=== PATIENT | male | born 1975 | race Caucasian/White ===

== ENCOUNTER 2016-09-08 16:10 | Inpatient (IN) | payer OTHER ==
[2016-09-08 16:31] VITALS: BMI 26.7
--- NOTE | 2016-09-08 18:33 | HP ---
CIWA Score - CIWA Score Nausea/Vomitin Muscle Tremors: 4-Moderate,w/Arms Extend Anxiety: 4-Mod. Anxious/Guarded Agitation: 4-Moderately Restless Paroxysmal Sweats: 3 Orientation: 0-Oriented Tacttile Disturbances: 1-Very Mild Itch/Numbness Auditory Disturbances: 0-None Visual Disturbances: 0-None Headache: 0-None Present CIWA-Ar Total Score: 19 Admission ROS BHS - HPI Chief Complaint: WITHDRAWAL SX. Allergies/Adverse Reactions: Allergies Allergy/AdvReac Type Severity Reaction Status Date / Time shellfish derived Allergy Verified 09/08/16 18:25 History of Present Illness: 41 Y/O MAN WITH A LONG HX. OF DRUG AND ALCOHOL DEPENDENCE IS ADMITTED FOR DETOX.PT. HAS BEEN IN PREVIOUS DETOX,DENIES SIGNIFICANT SOBRIETY. Exam Limitations: No Limitations - Ebola screening Have you traveled outside of the country in the last 21 days: No Have you had contact with anyone from an Ebola affected area: No Have you been sick,other than usual withdrawal symptoms: No Do you have a fever: No - Review of Systems Constitutional: Diaphoresis EENT: reports: No Symptoms Reported Respiratory: reports: No Symptoms reported Cardiac: reports: No Symptoms Reported GI: reports: Diarrhea, Nausea, Abdominal cramping : reports: No Symptoms Reported Musculoskeletal: reports: Joint Pain Integumentary: reports: Sweating Neuro: reports: Seizure (SINCE CHILDHOOD), Tremors Endocrine: reports: No Symptoms Reported Hematology: reports: No Symptoms Reported Psychiatric: reports: No Sypmtoms Reported Other Systems: Reviewed and Negative Patient History - Patient Medical History Hx Anemia: No Hx Asthma: Yes Hx Chronic Obstructive Pulmonary Disease (COPD): No Hx Cancer: No Hx Cardiac Disorders: No Hx Congestive Heart Failure: No Hx Hypertension: No Hx Hypercholesterolemia: No Hx Pacemaker: No HX Cerebrovascular Accident: No Hx Seizures: Yes (SINCE CHILDHOOD) Hx Dementia: No Hx Diabetes: No Hx Gastrointestinal Disorders: Yes (DYSPEPSIA) Hx Liver Disease: No Hx Genitourinary Disorders: No Hx Sexually Transmitted Disorders: No Hx Renal Disease (ESRD): No Hx Thyroid Disease: No Hx Human Immunodeficiency Virus (HIV): No Hx Hepatitis C: No Hx Depression: Yes ([place]) Hx Suicide Attempt: No Hx Bipolar Disorder: No Hx Schizophrenia: No - Patient Surgical History Past Surgical History: No - PPD History Previous Implant?: Yes Documented Results: Negative w/o proof Implanted On Prior [facility] Admission?: No PPD to be Administered?: Yes - Smoking Cessation Smoking history: Current every day smoker Aproximately how many cigarettes per day: 20 Hx Chewing Tobacco Use: No Initiated information on smoking cessation: Yes 'Breaking Loose' booklet given: 09/08/16 - Substance & Tx. History Hx Alcohol Use: Yes Hx Substance Use: Yes Substance Use Type: Alcohol, Cocaine Hx Substance Use Treatment: Yes (DETOX, OTP) - Substances Abused Alcohol Route: Oral Frequency: Daily Amount used: BEER 2-4(6PACKS) OR RUM 2 PINTS Age of first use: 17 Date of Last Use: 09/08/16 Family Disease History - Family Disease History Family Disease History: Other: Father (DRUG & ALCOHOL OF CIRRHOSIS) Admission Physical Exam [facility] - Vital Signs Vital Signs: Vital Signs - 24 hr 09/08/16 16:28 Temperature 97.9 F Pulse Rate 70 Respiratory 18 Rate Blood Pressure 128/79 - Physical General Appearance: Yes: Tremorous, Irritable, Sweating, Anxious HEENTM: Yes: Within Normal Limits Respiratory: Yes: Chest Non-Tender, Lungs Clear, Normal Breath Sounds Neck: Yes: Supple Breast: Yes: Breast Exam Deferred Cardiology: Yes: Regular Rhythm, Regular Rate, S1, S2 Abdominal: Yes: Normal Bowel Sounds, Non Tender, Soft Genitourinary: Yes: Within Normal Limits Back: Yes: Within Normal Limits Musculoskeletal: Yes: Within Normal Limits Extremities: Yes: Tremors Neurological: Yes: Fully Oriented, Alert Integumentary: Yes: Diaphoresis Lymphatic: Yes: Within Normal Limits - Diagnostic (1) Alcohol dependence with uncomplicated withdrawal Current Visit: Yes Status: Acute (2) Asthma Current Visit: Yes Status: Acute Qualifiers: Asthma severity: mild intermittent Asthma complication type: with acute exacerbation Qualified Code(s): J45.21 - Mild intermittent asthma with (acute) exacerbation (3) Opioid dependence on agonist therapy Current Visit: Yes Status: Acute Cleared for Admission [facility] - Detox or Rehab [facility] Level of Care: Medically Managed Detox Regimen/Protocol: Librium [facility] Breath Alcohol Content Breath Alcohol Content: 0 Urine Drug Screen - Results Drug Screen Negative: No Urine Drug Screen Results: MICKEY-Cocaine, OPI-Opiates, MTD-Methadone
[2016-09-08] MEDS ORDERED: hydrOXYzine PAMOATE 50 MG CAPSULE (FP) PO PRN (18:45)
[2016-09-08] MEDS ORDERED: MAG HYDROX/AL HYDROX/SIMETH 30 ML UNIT-DOSE CUP PO PRN (18:45)
[2016-09-08] MEDS ORDERED: chlordiazePOXIDE HCL 25 MG CAPSULE PO PRN (18:45)
[2016-09-08] MEDS ORDERED: MAGNESIUM CITRATE 300 ML BOTTLE PO PRN (18:45)
[2016-09-08] MEDS ORDERED: chlordiazePOXIDE HCL 25 MG CAPSULE PO ONE (18:45)
[2016-09-08] MEDS ORDERED: MAGNESIUM HYDROX 2400MG/30ML ORAL SUSPENSION 30 ML CUP PO PRN (18:45)
[2016-09-08] MEDS ORDERED: ACETAMINOPHEN 325 MG TABLET (FP) PO PRN (18:45)
[2016-09-08] MEDS ORDERED: LOPERAMIDE HCL 2 MG CAPSULE PO PRN (18:45)
[2016-09-08] MEDS ORDERED: guaiFENesin/D-METHORPHAN HB 10 ML UNIT-DOSE CUPS PO PRN (18:45)
[2016-09-08] MEDS ORDERED: MENTHOL/PHENOL 1 EACH UD MM PRN (18:45)
[2016-09-08] MEDS ORDERED: P-EPHED 60MG/TRIPROLIDI 2.5MG TABLET PO PRN (18:45)
[2016-09-08] MEDS ORDERED: IBUPROFEN 400 MG TABLET (FP) PO PRN (18:45)
[2016-09-08] MEDS ORDERED: ALBUTEROL SO4 6.7 GM HFA INHALER IH PRN (18:50)
[2016-09-08] MEDS: NICOTINE 21 MG/24 HOURS TOPICAL PATCH TD SCH (20:20)
[2016-09-08] MEDS ORDERED: INFLUENZA VACCINE 45 MCG/0.5 ML (MDV 16-17) IM ONE (20:32)
[2016-09-08] MEDS: PHENYTOIN NA EXTENDED 100 MG CAPSULE (FP) PO SCH (22:55)
[2016-09-08] MEDS: chlordiazePOXIDE HCL 25 MG CAPSULE PO SCH (22:55)
[2016-09-08] MEDS: diphenhydrAMINE HCL 50 MG CAPSULE PO PRN (22:58)
[2016-09-08] MEDS: THIAMINE HCL 100 MG TABLET (FP) PO SCH (23:02)
[2016-09-08] MEDS: NICOTINE POLACRILEX 2 MG GUM BC PRN (23:38)
[2016-09-09] MEDS ORDERED: METHADONE HCL 10 MG TABLET ONE (05:58)
[2016-09-09] MEDS ORDERED: METHADONE HCL 40 MG DISPERSABLE TABLET ONE (05:58)
[2016-09-09] MEDS ORDERED: METHADONE HCL 10 MG TABLET PO SCH (06:00)
[2016-09-09] MEDS: chlordiazePOXIDE HCL 25 MG CAPSULE PO SCH ×4 (06:09→22:47)
[2016-09-09] MEDS: METHADONE 120 MG, METHADONE 10 MG PO SCH (06:10)
[2016-09-09] MEDS ORDERED: ALBUTEROL SO4 2.5/IPRATROPIUM 0.5 INH SOL 3 ML VIAL.NEB. NEB PRN (08:00)
[2016-09-09 10:28] LABS: URINE APPEARANCE CLEAR; URINE BILIRUBIN NEGATIVE (NEGATIVE); URINE BLOOD NEGATIVE (NEGATIVE); URINE COLOR LTYELLOW; URINE GLUCOSE (UA) NEGATIVE (NEGATIVE); URINE KETONE NEGATIVE (NEGATIVE); URINE LEUK ESTERASE NEGATIVE (NEGATIVE); URINE NITRITE NEGATIVE (NEGATIVE); URINE PROTEIN NEGATIVE (NEGATIVE); URINE UROBILINOGEN NEGATIVE E.U./dl (0.2-1.0)
[2016-09-09 10:35] LABS: MCH 29.8 pg (25.7-33.7); MCHC 34.3 g/dl (32.0-35.9); MEAN PLT VOLUME 8.1 fl (7.5-11.1); PLATELET COUNT 209 K/MM3 (134-434); RDW 14.2 % (11.9-15.9); WHITE BLOOD COUNT 7.5 K/mm3 (4.0-10.0)
[2016-09-09 11:08] LABS: ALBUMIN 3.6 g/dl (3.4-5.0); ALK PHOS 65 U/L (45-117); ANION GAP 5 (8-16); BILIRUBIN,TOTAL 0.4 mg/dL (0.2-1.0); CALCIUM 8.5 mg/dL (8.5-10.1); CO2 29 mmol/L (21-32); GLUCOSE,RANDOM 93 mg/dL (74-106); SGOT/AST 24 U/L (15-37); SGPT/ALT 28 U/L (12-78)
[2016-09-09] MEDS ORDERED: INFLUENZA VACCINE 45 MCG/0.5 ML (MDV 16-17) IM ONE (12:00)
--- NOTE | 2016-09-09 12:07 | PN ---
S CIWA - CIWA Score Nausea/Vomitin Muscle Tremors: 3 Anxiety: 3 Agitation: 2 Paroxysmal Sweats: 1-Minimal Palms Moist Orientation: 0-Oriented Tacttile Disturbances: 1-Very Mild Itch/Numbness Auditory Disturbances: 1-Very Mild Visual Disturbances: 1-Very Mild Sensitivity Headache: 2-Mild CIWA-Ar Total Score: 17 BHS Progress Note (SOAP) Subjective: ALERT,IRRITABLE,ANXIOUS,INTERRUPTED SLEEP,TREMOR,PAIN IN THE BODY AND BACK Objective: 09/09/16 12:04 Vital Signs Temperature 98.4 F 09/09/16 10:25 Pulse Rate 70 09/09/16 10:25 Respiratory Rate 18 09/09/16 10:25 Blood Pressure 102/63 09/09/16 10:25 O2 Sat by Pulse Oximetry (%) EKG SINUS BRADYCARDIA RATE 59 NO CHEST PAIN,NO SOB,NO DIZZINESS Laboratory Last Values WBC 7.5 K/mm3 (4.0-10.0) 09/09/16 07:15 RBC 4.40 M/mm3 (4.00-5.60) 09/09/16 07:15 Hgb 13.1 GM/dL (11.7-16.9) 09/09/16 07:15 Hct 38.3 % (35.4-49) 09/09/16 07:15 MCV 87.0 fl (80-96) 09/09/16 07:15 MCHC 34.3 g/dl (32.0-35.9) 09/09/16 07:15 RDW 14.2 % (11.9-15.9) 09/09/16 07:15 Plt Count 209 K/MM3 (134-434) 09/09/16 07:15 MPV 8.1 fl (7.5-11.1) 09/09/16 07:15 Sodium 140 mmol/L (136-145) 09/09/16 07:15 Potassium 4.3 mmol/L (3.5-5.1) 09/09/16 07:15 Chloride 106 mmol/L (98-107) 09/09/16 07:15 Carbon Dioxide 29 mmol/L (21-32) 09/09/16 07:15 Anion Gap 5 (8-16) L 09/09/16 07:15 BUN 20 mg/dL (7-18) H 09/09/16 07:15 Creatinine 1.0 mg/dL (0.7-1.3) 09/09/16 07:15 Creat Clearance w eGFR > 60 (>60) 09/09/16 07:15 Random Glucose 93 mg/dL (74-106) 09/09/16 07:15 Calcium 8.5 mg/dL (8.5-10.1) 09/09/16 07:15 Total Bilirubin 0.4 mg/dL (0.2-1.0) 09/09/16 07:15 AST 24 U/L (15-37) 09/09/16 07:15 ALT 28 U/L (12-78) 09/09/16 07:15 Alkaline Phosphatase 65 U/L (45-117) 09/09/16 07:15 Total Protein 7.0 g/dl (6.4-8.2) 09/09/16 07:15 Albumin 3.6 g/dl (3.4-5.0) 09/09/16 07:15 Urine Color Ltyellow 09/09/16 07:40 Urine Appearance Clear 09/09/16 07:40 Urine pH 7.0 (5.0-8.0) 09/09/16 07:40 Ur Specific [place] 1.015 (1.001-1.035) 09/09/16 07:40 Urine Protein Negative (NEGATIVE) 09/09/16 07:40 Urine Glucose (UA) Negative (NEGATIVE) 09/09/16 07:40 Urine Ketones Negative (NEGATIVE) 09/09/16 07:40 Urine Blood Negative (NEGATIVE) 09/09/16 07:40 Urine Nitrite Negative (NEGATIVE) 09/09/16 07:40 Urine Bilirubin Negative (NEGATIVE) 09/09/16 07:40 Urine Urobilinogen Negative E.U./dl (0.2-1.0) 09/09/16 07:40 Ur Leukocyte Esterase Negative (NEGATIVE) 09/09/16 07:40 09/09/16 12:06 Assessment: 09/09/16 12:06 WITHDRAWAL SYMPTOM 09/09/16 12:06 Plan: TO CONTINUE DETOX
[2016-09-09] MEDS: PHENYTOIN NA EXTENDED 100 MG CAPSULE (FP) PO SCH ×2 (12:14→22:47)
[2016-09-09] MEDS: NICOTINE 21 MG/24 HOURS TOPICAL PATCH TD SCH (12:15)
[2016-09-09] MEDS: PRENATAL VITAMINS W/ FOLIC ACID TABLET (FP) PO SCH (12:15)
[2016-09-09 15:28] LABS: HIV 1 & 2 AB NEGATIVE; HIV 1 AGp24 NEGATIVE
--- NOTE | 2016-09-09 21:35 | CONSULT ---
[facility] Psychiatric Consult - Data Date of interview: 09/09/16 Admission source: [facility] Identifying data: First admission to [facility] for this 41 y/o male seeking detox treatment on for alcohol,opioid and cocaine dependence.Patient is single without children,homeless,unemployed and supported on Public Assistance. Substance Abuse History: - Smoking Cessation. Smoking history: Current every day smoker. Aproximately how many cigarettes per day: 20. Hx Chewing Tobacco Use: No. Initiated information on smoking cessation: Yes. 'Breaking Loose' booklet given: 09/08/16. - Substance & Tx. History. Hx Alcohol Use: Yes. Hx Substance Use: Yes. Substance Use Type: Alcohol, Cocaine. Hx Substance Use Treatment: Yes (DETOX, OTP). - Substances Abused. Alcohol. Route: Oral. Frequency: Daily. Amount used: BEER 2-4(6PACKS) OR RUM 2 PINTS. Age of first use: 17. Date of Last Use: 09/08/16. Confirmed by patient. Medical History: Significant for a history of seizue disorder (since childhood), dyspepsia and bronchial asthma. Psychiatric History: Patient denies history of psychiatric hospitalizations.He indicates,however,that since age 18,he has been diagnosed with Bipolar Disorder and MDD that were managed with valproate and clonazepam.Trazodone was prescribed to him to address his insomnia.Mr Munoz reports chronic non adherence to OPD care but he keeps regular attendance at his methadone maintenance program (130 mg/day),[facility].Patient kept himself off psychotropic medications for several months." I was using drugs and I was going from place to place." Mr Munoz is currently expressing interest in resuming treatment with depakote (as a mood stabilizer) and trazodone for insomnia.He reports a remote history of suicide attempt (self-mutilation) years ago.Chronic insomnia remains a constant complaint. Physical/Sexual Abuse/Trauma History: No reported history of sexual abuse. Additional Comment: Urine Drug Screen Results: MICKEY-Cocaine, OPI-Opiates, MTD- Methadone.Noted. Mental Status Exam - Mental Status Exam Alert and Oriented to: Time, Place, Person Cognitive Function: Good Patient Appearance: Unkempt, Disheveled Mood: Nervous, Anxious, Apprehensive Affect: Mood Congruent, Blunted Patient Behavior: Fatigued, Appropriate, Cooperative Speech Pattern: Clear Voice Loudness: Normal Thought Process: Goal Oriented Thought Disorder: Not Present Hallucinations: Denies Suicidal Ideation: Denies Homicidal Ideation: Denies Insight/Judgement: Poor Sleep: Poorly, Difficulty falling asleep Appetite: Good Muscle strength/Tone: Normal Gait/Station: Normal Psychiatric Findings - Problem List ([place] 1, 2,3) (1) Alcohol dependence with uncomplicated withdrawal Current Visit: Yes Status: Acute (2) Opioid dependence on agonist therapy Current Visit: Yes Status: Acute (3) Cocaine dependence Current Visit: Yes Status: Acute (4) Nicotine dependence Current Visit: Yes Status: Acute (5) Substance induced mood disorder Current Visit: Yes Status: Acute (6) Bipolar disorder Current Visit: Yes Status: Chronic Comment: By history. (7) Asthma Current Visit: Yes Status: Chronic Qualifiers: Asthma severity: mild intermittent Asthma complication type: with acute exacerbation Qualified Code(s): J45.21 - Mild intermittent asthma with (acute) exacerbation - Initial Treatment Plan Initial Treatment Plan: Psychoeducation.Detoxification.Observation.Medications : depakote 250 mg po daily.Side effects/benefits discussed with patient.Trazodone not ordered (no evidence of sleep disturbances as per nursing notes).Consent ( verbal) given for adherence to this careplan.Observation.
[2016-09-09] MEDS: THIAMINE HCL 100 MG TABLET (FP) PO SCH (22:47)
[2016-09-09] MEDS: diphenhydrAMINE HCL 50 MG CAPSULE PO PRN (22:48)
[2016-09-09] MEDS: NICOTINE POLACRILEX 2 MG GUM BC PRN (22:50)
[2016-09-10] MEDS ORDERED: METHADONE HCL 10 MG TABLET ONE (07:14)
[2016-09-10] MEDS ORDERED: METHADONE HCL 40 MG DISPERSABLE TABLET ONE (07:14)
[2016-09-10] MEDS: METHADONE 120 MG, METHADONE 10 MG PO SCH (07:33)
[2016-09-10] MEDS: chlordiazePOXIDE HCL 25 MG CAPSULE PO SCH ×3 (07:35→17:58)
[2016-09-10] MEDS ORDERED: DIVALPROEX SODIUM 250 MG TABLET E.C. (FP) PO SCH (10:00)
[2016-09-10] MEDS: PRENATAL VITAMINS W/ FOLIC ACID TABLET (FP) PO SCH (10:36)
[2016-09-10] MEDS: PHENYTOIN NA EXTENDED 100 MG CAPSULE (FP) PO SCH (10:36)
[2016-09-10] MEDS: NICOTINE 21 MG/24 HOURS TOPICAL PATCH TD SCH (10:37)
[2016-09-10] MEDS: NICOTINE POLACRILEX 2 MG GUM BC PRN (10:39)
--- NOTE | 2016-09-10 11:08 | PN ---
S CIWA - CIWA Score Nausea/Vomitin-No Nausea/No Vomiting Muscle Tremors: 4-Moderate,w/Arms Extend Anxiety: 3 Agitation: 4-Moderately Restless Paroxysmal Sweats: 3 Orientation: 0-Oriented Tacttile Disturbances: 0-None Auditory Disturbances: 0-None Visual Disturbances: 0-None Headache: 1-Very Mild CIWA-Ar Total Score: 15 BHS Progress Note (SOAP) Subjective: hot/cold sweats constipation agitation anxiety Objective: 09/10/16 11:03 Vital Signs Temperature 98.2 F 09/10/16 10:39 Pulse Rate 82 09/10/16 10:39 Respiratory Rate 16 09/10/16 10:39 Blood Pressure 139/74 09/10/16 10:39 O2 Sat by Pulse Oximetry (%) Laboratory Tests 09/09/16 09/09/16 09/09/16 07:15 07:15 07:15 WBC 7.5 RBC 4.40 Hgb 13.1 Hct 38.3 MCV 87.0 MCHC 34.3 RDW 14.2 Plt Count 209 MPV 8.1 Sodium 140 Potassium 4.3 Chloride 106 Carbon Dioxide 29 Anion Gap 5 L BUN 20 H Creatinine 1.0 Creat Clearance w eGFR > 60 Random Glucose 93 Calcium 8.5 Total Bilirubin 0.4 AST 24 ALT 28 Alkaline Phosphatase 65 Total Protein 7.0 Albumin 3.6 Urine Color Urine Appearance Urine pH Ur Specific [place] Urine Protein Urine Glucose (UA) Urine Ketones Urine Blood Urine Nitrite Urine Bilirubin Urine Urobilinogen Ur Leukocyte Esterase Phenytoin RPR Titer Nonreactive HIV 1&2 Antibody Screen HIV P24 Antigen 09/09/16 09/09/16 09/09/16 07:15 07:15 07:40 WBC RBC Hgb Hct MCV MCHC RDW Plt Count MPV Sodium Potassium Chloride Carbon Dioxide Anion Gap BUN Creatinine Creat Clearance w eGFR Random Glucose Calcium Total Bilirubin AST ALT Alkaline Phosphatase Total Protein Albumin Urine Color Ltyellow Urine Appearance Clear Urine pH 7.0 Ur Specific [place] 1.015 Urine Protein Negative Urine Glucose (UA) Negative Urine Ketones Negative Urine Blood Negative Urine Nitrite Negative Urine Bilirubin Negative Urine Urobilinogen Negative Ur Leukocyte Esterase Negative Phenytoin < 2.5 L RPR Titer HIV 1&2 Antibody Screen Negative HIV P24 Antigen Negative awake/alert ambulating no acute distress Assessment: 09/10/16 11:08 withdrawal sx Plan: continue detox increase fluids
[2016-09-10 18:24] VITALS: BP 106/68; PULSE 67; TEMP 98.2
--- NOTE | 2016-09-10 22:38 | DS ---
[facility] Detox Discharge Summary Admission Date: 09/08/16 Discharge Date: 09/10/16 - History Present History: Alcohol Dependence Additional Comments: 41 YEARS OLD MALE ADMITTED FOR ALCOHOL DETOX, PATIENT INSISTS TO DETOX ON THE SAME UNIT HIS IS ADMITTED TO, CONSTANT VERBAL CONFLICT WITH HIS , DISTURB CLINICAL DETOX HARMONY ENVIRONMENT, IT IS PRUDENT TO TRANSFER THE PATIENT TO 3N, PATIENT REFUSED INSISTS TO AMA OUT WITH HIS PATIENT REFUSES TO WAIT FOR FACE TO FACE WITH THE PROVIDER. PATIENT THROW APPLE SOURCE ON PEERS ON THE WAY OUT THE UNIT PATIENT LEFT THE UNIT PROMPTLY Pertinent Past History: asthma bipolar II - Physical Exam Results Vital Signs: Vital Signs Temperature 98.2 F 09/10/16 18:23 Pulse Rate 67 09/10/16 18:23 Respiratory Rate 16 09/10/16 18:23 Blood Pressure 106/68 09/10/16 18:23 O2 Sat by Pulse Oximetry (%) Pertinent Admission Physical Exam Findings: Laboratory Last Values WBC 7.5 K/mm3 (4.0-10.0) 09/09/16 07:15 RBC 4.40 M/mm3 (4.00-5.60) 09/09/16 07:15 Hgb 13.1 GM/dL (11.7-16.9) 09/09/16 07:15 Hct 38.3 % (35.4-49) 09/09/16 07:15 MCV 87.0 fl (80-96) 09/09/16 07:15 MCHC 34.3 g/dl (32.0-35.9) 09/09/16 07:15 RDW 14.2 % (11.9-15.9) 09/09/16 07:15 Plt Count 209 K/MM3 (134-434) 09/09/16 07:15 MPV 8.1 fl (7.5-11.1) 09/09/16 07:15 Sodium 140 mmol/L (136-145) 09/09/16 07:15 Potassium 4.3 mmol/L (3.5-5.1) 09/09/16 07:15 Chloride 106 mmol/L (98-107) 09/09/16 07:15 Carbon Dioxide 29 mmol/L (21-32) 09/09/16 07:15 Anion Gap 5 (8-16) L 09/09/16 07:15 BUN 20 mg/dL (7-18) H 09/09/16 07:15 Creatinine 1.0 mg/dL (0.7-1.3) 09/09/16 07:15 Creat Clearance w eGFR > 60 (>60) 09/09/16 07:15 Random Glucose 93 mg/dL (74-106) 09/09/16 07:15 Calcium 8.5 mg/dL (8.5-10.1) 09/09/16 07:15 Total Bilirubin 0.4 mg/dL (0.2-1.0) 09/09/16 07:15 AST 24 U/L (15-37) 09/09/16 07:15 ALT 28 U/L (12-78) 09/09/16 07:15 Alkaline Phosphatase 65 U/L (45-117) 09/09/16 07:15 Total Protein 7.0 g/dl (6.4-8.2) 09/09/16 07:15 Albumin 3.6 g/dl (3.4-5.0) 09/09/16 07:15 Urine Color Ltyellow 09/09/16 07:40 Urine Appearance Clear 09/09/16 07:40 Urine pH 7.0 (5.0-8.0) 09/09/16 07:40 Ur Specific [place] 1.015 (1.001-1.035) 09/09/16 07:40 Urine Protein Negative (NEGATIVE) 09/09/16 07:40 Urine Glucose (UA) Negative (NEGATIVE) 09/09/16 07:40 Urine Ketones Negative (NEGATIVE) 09/09/16 07:40 Urine Blood Negative (NEGATIVE) 09/09/16 07:40 Urine Nitrite Negative (NEGATIVE) 09/09/16 07:40 Urine Bilirubin Negative (NEGATIVE) 09/09/16 07:40 Urine Urobilinogen Negative E.U./dl (0.2-1.0) 09/09/16 07:40 Ur Leukocyte Esterase Negative (NEGATIVE) 09/09/16 07:40 Phenytoin < 2.5 ug/ml (10.0-20.0) L 09/09/16 07:15 RPR Titer Nonreactive (NONREACTIVE) 09/09/16 07:15 HIV 1&2 Antibody Screen Negative 09/09/16 07:15 HIV P24 Antigen Negative 09/09/16 07:15 LAB NOTED - Treatment Hospital Course: Detox Protocol Followed, Responded well - Medication Discharge Medications: Ambulatory Orders Albuterol Sulfate Inhaler - [Ventolin Hfa Inhaler -] 2 inh PO Q4H PRN 09/08/16 Phenytoin Na Extended [Dilantin -] 100 mg PO BID 09/08/16 - AMA Did Patient Leave Against Medical Advice: Yes
[2016-09-10] MEDS ORDERED: chlordiazePOXIDE 5 MG CAPSULE PO SCH (23:00)
[2016-09-11] MEDS ORDERED: chlordiazePOXIDE HCL 10 MG CAPSULE PO SCH (23:00)
== END 2016-09-10 18:38 | disposition left against medical advice (07) | DRG 770 ==
LOC: YASAS 16:10 → Y3N 19:19 → Y6N 22:31 → Y3N 09-10 17:59
PROVIDERS: ADMIT Internal Medicine; ATTEND Internal Medicine
PROC: HZ2ZZZZ Detoxification Services for Substance Abuse Treatment (ICD-10-PCS; principal; 2016-09-08)
DX: F10.230 Alcohol dependence with withdrawal, uncomplicated (principal); F11.20 Opioid dependence, uncomplicated; F14.20 Cocaine dependence, uncomplicated; F17.210 Nicotine dependence, cigarettes, uncomplicated; F19.24 Other psychoactive substance dependence with psychoactive substance-induced mood disorder; F31.9 Bipolar disorder, unspecified; J45.21 Mild intermittent asthma with (acute) exacerbation; R00.1 Bradycardia, unspecified; G40.909 Epilepsy, unspecified, not intractable, without status epilepticus
CPT/HCPCS: 36415; 80053; 80185; 81003; 85027; 86593; 87389; 93005; 93010